=== PATIENT | male | born 1975 | race Hispanic/Latino ===

== ENCOUNTER → 2018-06-09 13:35 | Outpatient (CLI) | payer OTHER, SELFPAY ==
--- NOTE | 2018-06-09 | DI.CT.S_ITS ---
PROCEDURE: CT CHEST WO CON INDICATIONS: LEFT SIDED RIB PAIN TECHNIQUE: Noncontrast 5 mm thick sections acquired from the pulmonary apices to the posterior costophrenic angles. 7 mm thick coronal and sagittal MIP reformats were then acquired. For radiation dose reduction, the following was used: automated exposure control, adjustment of mA and/or kV according to patient size. COMPARISON: None. FINDINGS: Image quality: Excellent. Lungs and pleura: No acute air space opacities. No pleural effusions or pneumothorax. Central and peripheral airways are patent and normal in caliber. Mediastinum: Heart size is normal. No pericardial effusion. No mediastinal adenopathy by size criteria. Thoracic aorta and central pulmonary arteries are normal in size. Esophagus is normal in caliber. There is a small hiatal hernia. Bones and chest wall: No suspicious bony lesions. Moderate S-shaped scoliosis is seen. In this patient with this given history, scrutiny is given to the left ribs. No displaced rib fractures can be seen. The overlying pectoralis musculature also demonstrates no significant abnormality. No vertebral body compression fractures. No axillary or supraclavicular adenopathy by size criteria. Thyroid gland demonstrates no significant noncontrast abnormality. Abdomen: There is a 2 mm nonobstructing right renal stone seen, as on series 2 image 62. Visualized upper abdominal solid organs and bowel loops appear normal in the absence of contrast. IMPRESSION: No rib abnormality can be seen. The overlying pectoralis musculature is likewise within normal limits. Moderate S-shaped scoliosis. Incidental note is made of: Spinal hernia 2 mm nonobstructing right renal stone Dictated by: Gigi Gage M.D. on 06/09/2018 at 14:09 Approved by: Gigi Gage M.D. on 06/09/2018 at 14:12
== END ==
PROVIDERS: Visit Provider Orthopaedic Surgery
DX: R07.81 Pleurodynia (principal); N20.0 Calculus of kidney; K44.9 Diaphragmatic hernia without obstruction or gangrene
CPT/HCPCS: 71250

== ENCOUNTER → 2018-06-24 09:04 | Outpatient (CLI) | payer OTHER, SELFPAY ==
--- NOTE | 2018-06-24 | DI.NM.S_ITS ---
PROCEDURE: NM BONE SCAN WHOLE BODY RADIOPHARMACEUTICAL: 21.8 mCi Tc-99m MDP IV. INDICATIONS: Pleurodynia TECHNIQUE: Delayed whole-body scintigrams were obtained approximately 3-4 hours after intravenous injection of radiotracer. Anterior and posterior views were acquired from vertex to feet. Additional left and right oblique views of the thorax were obtained. COMPARISON: [facility], CT, CT CHEST WO CON, 06/09/2018, 13:38. FINDINGS: No areas of relative intense radiotracer uptake identified. Mild radiotracer uptake identified in the shoulders bilaterally, and the upper thoracic spine most compatible with osteoarthritis. There is severe convex left scoliosis of the upper thoracic spine. No abnormal soft tissue activity identified. Activity in the kidneys is normal and symmetric. IMPRESSION: 1. Increased radiotracer activity in the shoulders bilaterally upper thoracic spine is compatible with osteoarthritis. 2. Severe convex left upper thoracic spine scoliosis. 3. Otherwise, normal examination. Dictated by: Sheron Peres MD, PhD on 06/24/2018 at 14:37 Approved by: Sheron Peres MD, PhD on 06/24/2018 at 14:49
== END ==
PROVIDERS: Visit Provider Orthopaedic Surgery
DX: R07.81 Pleurodynia (principal); M41.84 Other forms of scoliosis, thoracic region
CPT/HCPCS: 78306; A9503

== ENCOUNTER 2022-09-12 09:26 | Emergency (ER) | payer SELFPAY ==
[2022-09-12 09:43] VITALS: BP 129/73; PULSE 70; RESP 14; TEMP 36.5; O2SAT 99; BMI 25.7
--- NOTE | 2022-09-12 10:51 | DI.CT.S_ITS ---
PROCEDURE: CT ABDOMEN PELVIS W CON INDICATIONS: abd mass to right of umbilicus TECHNIQUE: After the administration of intravenous contrast, axial sections acquired from the lung bases to the pubic symphysis. Coronal and sagittal reformats were performed. For radiation dose reduction, the following was used: automated exposure control, adjustment of mA and/or kV according to patient size. COMPARISON: None. FINDINGS: Lower thorax: The lung bases are clear. Heart size normal. No hiatal hernia. Liver: The liver is diffusely decreased in attenuation without focal mass lesion. Biliary system: No calcified cholelithiasis or pericholecystic inflammation. No intra or extrahepatic bile duct dilatation. Pancreas: Unremarkable without mass or inflammation evident. Spleen: Normal in size and density. Adrenals: Normal morphology and density. Reproductive system: Unremarkable as visualized. Urinary system: Normal renal size and attenuation. Small 1.7 cm renal cortical cyst. No renal calculi, hydronephrosis, or solid mass present. Urinary bladder unremarkable. Gastrointestinal system: The bowel is unremarkable without evidence of bowel obstruction or inflammation. The stomach appears unremarkable. Appendix: No findings to suggest acute appendicitis. Peritoneal spaces: No mesenteric or retroperitoneal adenopathy. No free air. No free fluid. Vasculature: The IVC, aorta and iliac vasculature are unremarkable. Abdominal wall: Abdominal wall intact without evidence of ventral or inguinal hernias. Musculoskeletal: Normal bone mineralization. No acute fractures. Bilateral L5 pars defects noted without spondylolisthesis IMPRESSION: 1. No CT evidence of periumbilical abdominal mass lesion 2. Incidental hepatic fatty infiltration, right renal cyst and L5 spondylolysis Approved by: Boby Smith M.D. on 09/12/2022 at 12:06
[2022-09-12 11:26] LABS: Add Manual Diff / Slide Review NO; Basophils Absolute Auto 0 /uL (0-100); Basophils Percent Auto 0.5 % (0-2); Eosinophils Absolute Auto 200 /uL (0-450); Eosinophils Percent Auto 2.4 % (2-4); Hematocrit 44.1 % (41-53); Lymphocytes Absolute Auto 2900 /uL (1100-4500); Mean Corpuscular HGB Conc 33.9 % (30-36); Mean Corpuscular Hemoglobin 29.5 PG (26-34); Mean Corpuscular Volume 86.8 fL (80-100); Monocytes Absolute Auto 600 /uL (0-900); Monocytes Percent Auto 9.4 % (3-14); Neutrophils Absolute Auto 2700 /uL (1500-7000); Neutrophils Percent Auto 42.7 % (50-75); Platelet Count 238 X10^3/uL (150-400); Red Blood Cell Count 5.08 X10^6/uL (4.5-5.9); White Blood Cell Count 6.3 X10^3/uL (4.5-11.0)
[2022-09-12 11:45] LABS: Alanine Aminotransferase 32 IU/L (<50); Albumin 4.9 g/dL (3.5-5.0); Albumin Globulin Ratio 1.4 (1.0-2.8); Alkaline Phosphatase 73 U/L (38-126); Aspartate Aminotransferase 45 IU/L (17-59); BUN Creatinine Ratio 16.9 (6-22); Bilirubin Total 0.6 mg/dL (0.2-1.3); Blood Urea Nitrogen 13 mg/dL (9-20); Calcium 9.7 mg/dL (8.4-10.2); Carbon Dioxide 28 mmol/L (22-32); Chloride 104 mmol/L (98-107); Estimated Glomerular Filt Rate > 60 mL/min (>60); Globulin 3.4 g/dL (1.7-4.1); Glucose 101 mg/dL (70-100); HEMOLYSIS 24 (0-50); Lipase 144 U/L (23-300); Potassium 4.2 mmol/L (3.4-5.1); Sodium 140 mmol/L (137-145); Total Protein 8.3 g/dL (6.3-8.2)
--- NOTE | 2022-09-12 13:33 | ED.WOUNDLAC ---
HPI - Wound/Laceration <MEGHANN Wagoner - Last Filed: 09/12/22 13:52> General Chief Complaint: Abdominal Pain Stated Complaint: abscess rt side abd/pain Time Seen by Provider: 09/12/22 13:18 Source: patient and family Mode of arrival: Ambulatory History of Present Illness HPI narrative: This is a 46 this is a 46-year-old male presents to the emergency department complaining of pain to the surface of his right lower quadrant. Denies fever, denies vomiting, denies stool changes but states that it is painful when he bends over when he does work or if he lifts anything. He states it has been painful for approximately 1 week, denies any known trauma or injury. States that he has history of neck pain with sciatica down his leg but denies any symptoms of this at this time. He denies any other changes, denies nausea vomiting, denies history of abdominal surgery, denies changes to his urination or appetite. Related Data Home Medications Medication Instructions Recorded Confirmed gabapentin 300 mg capsule 600 mg PO TID back, neck pain 09/12/22 09/12/22 Allergies Allergy/AdvReac Type Severity Reaction Status Date / Time No Known Drug Allergies Allergy Verified 09/12/22 09:46 Review of Systems <MEGHANN Wagoner - Last Filed: 09/12/22 13:52> Review of Systems ROS Unobtainable: All systems reviewed & are unremarkable except as noted in HPI and below Patient History <MEGHANN Wagoner - Last Filed: 09/12/22 13:52> Social History Smoking Status: Never smoker Smoking Status: Never smoker alcohol intake frequency: 0-2 drinks per day Substance Use Type: does not use Exam <MEGHANN Wagoner - Last Filed: 09/12/22 13:52> Narrative Exam Narrative: Reviewed vitals signs and nursing notes. General: Pleasant, sitting upright, in no acute distress, well groomed, afebrile HEENT: symmetrical facial expressions, moist mucous membranes, neck is supple CV: regular rate and rhythm, warm extremities Respiratory: normal work of breathing, without tachypnea or hypoxia. GI: abdomen soft, nondistended, no palpable hernia or abnormality, mild tenderness with palpation to the right lower quadrant but superficial, this is most likely related to a muscle strain. No CVA tenderness bilaterally, without epigastric pain, negative Hwang sign MSK: moves all extremities, no weakness, normal tone, ambulatory without deficit Skin: brisk capillary refill, without rash or wound Neuro: clear speech and normal cognition, A&O x3, GCS 15, no focal motor or sensation deficits Initial Vital Signs Initial Vital Signs: Vital Signs Temperature 97.7 F 09/12/22 09:43 Pulse Rate 70 09/12/22 09:43 Respiratory Rate 14 09/12/22 09:43 Blood Pressure 129/73 09/12/22 09:43 Pulse Oximetry 99 09/12/22 09:43 Oxygen Delivery Method Room Air 09/12/22 09:43 <Lowell Pastor MD - Last Filed: 09/27/22 22:16> Initial Vital Signs Initial Vital Signs: Vital Signs Temperature 97.7 F 09/12/22 09:43 Pulse Rate 70 09/12/22 09:43 Respiratory Rate 14 09/12/22 09:43 Blood Pressure 129/73 09/12/22 09:43 Pulse Oximetry 99 09/12/22 09:43 Oxygen Delivery Method Room Air 09/12/22 09:43 Course <MEGHANN Wagoner - Last Filed: 09/12/22 13:52> Orders Ordered: Discontinued Medications Hydrocodone Bitart/Acetaminophen (Hydrocodone/Acet 5/325 Tablet) 1 tab PO NOW ONE Stop: 09/12/22 13:30 Last Admin: 09/12/22 13:42 Dose: 1 tab Documented By: BUD Ketorolac Tromethamine (Ketorolac 30 Mg/Ml Vial) 30 mg IV NOW ONE Stop: 09/12/22 13:30 Last Admin: 09/12/22 13:42 Dose: 30 mg Documented By: BUD Lidocaine (Lidocaine Patch 1 Each Adh..Patch) 1 each TOP NOW ONE Stop: 09/12/22 13:30 Last Admin: 09/12/22 13:42 Dose: 1 each Documented By: BUD Vital Signs Vital signs: Vital Signs - 8 hr 09/12/22 09:43 Temperature 97.7 F Pulse Rate 70 Respiratory Rate 14 Blood Pressure 129/73 Pulse Oximetry 99 Oxygen Delivery Method Room Air <Lowell Pastor MD - Last Filed: 09/27/22 22:16> Orders Ordered: Discontinued Medications Hydrocodone Bitart/Acetaminophen (Hydrocodone/Acet 5/325 Tablet) 1 tab PO NOW ONE Stop: 09/12/22 13:30 Last Admin: 09/12/22 13:42 Dose: 1 tab Documented By: BUD Ketorolac Tromethamine (Ketorolac 30 Mg/Ml Vial) 30 mg IV NOW ONE Stop: 09/12/22 13:30 Last Admin: 09/12/22 13:42 Dose: 30 mg Documented By: BUD Lidocaine (Lidocaine Patch 1 Each Adh..Patch) 1 each TOP NOW ONE Stop: 09/12/22 13:30 Last Admin: 09/12/22 13:42 Dose: 1 each Documented By: BUD Vital Signs Vital signs: Vital Signs - 8 hr 09/12/22 09:43 Temperature 97.7 F Pulse Rate 70 Respiratory Rate 14 Blood Pressure 129/73 Pulse Oximetry 99 Oxygen Delivery Method Room Air MDM - Wound/Laceration <MEGHANN Wagoner - Last Filed: 09/12/22 13:52> Lab Data 09/12/22 11:00 09/12/22 11:00 Labs: Lab Results 09/12/22 09/12/22 Range/Units 11:00 11:00 WBC 6.3 (4.5-11.0) X10^3/uL RBC 5.08 (4.5-5.9) X10^6/uL Hgb 15.0 (13.5-17.5) g/dL Hct 44.1 (41-53) % MCV 86.8 (80-100) fL MCH 29.5 (26-34) PG MCHC 33.9 (30-36) % RDW 14.0 (11.6-14.8) % Plt Count 238 (150-400) X10^3/uL Neut % (Auto) 42.7 L (50-75) % Lymph % (Auto) 45.0 H (25-40) % [place] % (Auto) 9.4 (3-14) % Eos % (Auto) 2.4 (2-4) % Baso % (Auto) 0.5 (0-2) % Neut # (Auto) 2700 (4175-4898) /uL Lymph # (Auto) 2900 (3023-5900) /uL [place] # (Auto) 600 (0-900) /uL Eos # (Auto) 200 (0-450) /uL Baso # (Auto) 0 (0-100) /uL Sodium 140 (137-145) mmol/L Potassium 4.2 (3.4-5.1) mmol/L Chloride 104 (98-107) mmol/L Carbon Dioxide 28 (22-32) mmol/L BUN 13 (9-20) mg/dL Creatinine 0.77 (0.66-1.25) mg/dL Estimated GFR > 60 (>60) mL/min BUN/Creatinine Ratio 16.9 (6-22) Glucose 101 H (70-100) mg/dL Calcium 9.7 (8.4-10.2) mg/dL Total Bilirubin 0.6 (0.2-1.3) mg/dL AST 45 (17-59) IU/L ALT 32 (<50) IU/L Alkaline Phosphatase 73 (38-126) U/L Total Protein 8.3 H (6.3-8.2) g/dL Albumin 4.9 (3.5-5.0) g/dL Globulin 3.4 (1.7-4.1) g/dL Albumin/Globulin Ratio 1.4 (1.0-2.8) Lipase 144 (23-300) U/L Imaging Data CT scan - abdomen/pelvis: Radiologist's Impression: PROCEDURE:? CT ABDOMEN PELVIS W CON ? INDICATIONS:? abd mass to right of umbilicus ? TECHNIQUE:? After the administration of intravenous contrast, axial sections acquired from the lung bases to the pubic symphysis.? Coronal and sagittal reformats were performed.? For radiation dose reduction, the following was used:? automated exposure control, adjustment of mA and/or kV according to patient size.? ? COMPARISON:? None. ? FINDINGS: ? Lower thorax: The lung bases are clear.? Heart size normal.? No hiatal hernia. ? Liver: The liver is diffusely decreased in attenuation without focal mass lesion. ? Biliary system:? No calcified cholelithiasis or pericholecystic inflammation.? No intra or extrahepatic bile duct dilatation. ? Pancreas:? Unremarkable without mass or inflammation evident. ? Spleen:? Normal in size and density. ? Adrenals:? Normal morphology and density. ? Reproductive system:? Unremarkable as visualized. ? Urinary system:? Normal renal size and attenuation.? Small 1.7 cm renal cortical cyst.? No renal calculi, hydronephrosis, or solid mass present.? Urinary bladder unremarkable. ? Gastrointestinal system:? The bowel is unremarkable without evidence of bowel obstruction or inflammation. The stomach appears unremarkable. ? Appendix:? No findings to suggest acute appendicitis. ? Peritoneal spaces:? No mesenteric or retroperitoneal adenopathy.? No free air.? No free fluid.? ? Vasculature:? The IVC, aorta and iliac vasculature are unremarkable. ? Abdominal wall:? Abdominal wall intact without evidence of ventral or inguinal hernias. ? Musculoskeletal:? Normal bone mineralization.? No acute fractures.? Bilateral L5 pars defects noted without spondylolisthesis ? IMPRESSION: ? 1. No CT evidence of periumbilical abdominal mass lesion ? 2. Incidental hepatic fatty infiltration, right renal cyst and L5 spondylolysis ? Approved by: Boby Smith M.D. on 09/12/2022 at 12:06? MDM Narrative Medical decision making narrative: Chief Complaint: Abdominal pain Multiple etiologies for patient's symptoms considered including, but not limited to: Constipation, abdominal muscle strain, hernia, incarcerated hernia, abscess, nephrolithiasis, pyelonephritis, urinary tract infection I have independently reviewed the patient's vital signs and nursing notes as well as prior records if available. Pertinent lab findings reviewed: CBC is unremarkable, CMP is unremarkable, no elevation of liver enzymes, normal lipase, normal renal function My interpretation of imaging: CT abdomen pelvis without acute abnormality, no evidence superficial abnormality or deep abdominal wall, no findings to suggest appendicitis or nephrolithiasis Course of care: Patient is nontoxic appearing, without GI changes, this is most likely an abdominal muscle strain. He was given Toradol, topical lidocaine patch and hydrocodone for his symptoms today. He says the symptoms for approximately 1 week and there is no CT evidence of infection, no skin changes, without evidence of infection without recent fever or chills. Recommend patient use [id number] Tylenol and ibuprofen for his pain, stay hydrated and to return for new worsening symptoms. His last bowel movement was this morning, states that he has had normal bowel movements at least twice a day for the last week. Social considerations that may affect disposition: none Questions are addressed and there is agreement with the plan and for follow-up. Patient is appropriate for outpatient management. <Lowell Pastor MD - Last Filed: 09/27/22 22:16> Lab Data Labs: Lab Results 09/12/22 09/12/22 Range/Units 11:00 11:00 WBC 6.3 (4.5-11.0) X10^3/uL RBC 5.08 (4.5-5.9) X10^6/uL Hgb 15.0 (13.5-17.5) g/dL Hct 44.1 (41-53) % MCV 86.8 (80-100) fL MCH 29.5 (26-34) PG MCHC 33.9 (30-36) % RDW 14.0 (11.6-14.8) % Plt Count 238 (150-400) X10^3/uL Neut % (Auto) 42.7 L (50-75) % Lymph % (Auto) 45.0 H (25-40) % [place] % (Auto) 9.4 (3-14) % Eos % (Auto) 2.4 (2-4) % Baso % (Auto) 0.5 (0-2) % Neut # (Auto) 2700 (8421-8880) /uL Lymph # (Auto) 2900 (9991-1973) /uL [place] # (Auto) 600 (0-900) /uL Eos # (Auto) 200 (0-450) /uL Baso # (Auto) 0 (0-100) /uL Sodium 140 (137-145) mmol/L Potassium 4.2 (3.4-5.1) mmol/L Chloride 104 (98-107) mmol/L Carbon Dioxide 28 (22-32) mmol/L BUN 13 (9-20) mg/dL Creatinine 0.77 (0.66-1.25) mg/dL Estimated GFR > 60 (>60) mL/min BUN/Creatinine Ratio 16.9 (6-22) Glucose 101 H (70-100) mg/dL Calcium 9.7 (8.4-10.2) mg/dL Total Bilirubin 0.6 (0.2-1.3) mg/dL AST 45 (17-59) IU/L ALT 32 (<50) IU/L Alkaline Phosphatase 73 (38-126) U/L Total Protein 8.3 H (6.3-8.2) g/dL Albumin 4.9 (3.5-5.0) g/dL Globulin 3.4 (1.7-4.1) g/dL Albumin/Globulin Ratio 1.4 (1.0-2.8) Lipase 144 (23-300) U/L Discharge Plan Departure Patient Disposition: Home Clinical Impression: Abdominal muscle strain Instructions: Abdominal Muscle Strain, DI for Abdominal Muscle Strain Activity Restrictions/Additional Instructions: *You have been diagnosed with a strain of your abdominal muscle. This can cause pain for 2 or more weeks. You can take Tylenol 975 mg with ibuprofen 800 mg every 8 hours with food and water. Please use a lidocaine patch or something topical if you need it for pain control. This will start to get better, no evidence of infection or anything dangerous today. Thank you for being patient and coming in for evaluation. I hope you feel better soon. If you get a fever or started vomiting, please come back for another evaluation. Drink plenty of water and try to avoid being constipated. *What to do: *Please continue to take your regular medications as directed. [ ] New medication prescriptions sent to your pharmacy: [ ] [ ] New medication written as a paper prescription [ x] No new medications given *Please call and schedule follow up with your primary care provider in 2-3 days, at least for an update. Let them know you were seen in the Emergency Department for the above problem. We will electronically transmit a record of today's note if your PCP or specialist is in our system. *If you do not have a primary care provider please contact [phone] to establish care with one of the [facility] primary care providers. *Return to the Emergency Department for worsening symptoms, inability to keep liquids down, fever greater than 101F, chills, or other concerning symptom. Prescriptions: No Action gabapentin 300 mg capsule 600 mg PO TID Stand Alone Forms: Patient Portal/API <Lowell Pastor MD - Last Filed: 09/27/22 22:16> Cosign ED Attending Cosignature Attestation: I was immediately available in the department for consultation. This documentation has been reviewed and I agree with assessment and plan. Supervised by Lowell Pastor MD
[2022-09-12] MEDS: HYDROCODONE/ACET 5/325 TABLET 1 TAB PO (13:42)
[2022-09-12] MEDS: LIDOCAINE PATCH 1 EACH ADH..PATCH TOP (13:42)
[2022-09-12] MEDS: KETOROLAC 30 MG/ML VIAL IV (13:42)
[2022-09-12 13:55] VITALS: BP 122/84; PULSE 68; RESP 16; O2SAT 100
== END 2022-09-12 13:57 | disposition home or self-care (01) ==
PROVIDERS: Emergency Medicine; Emergency Provider Nurse Practitioner Critical Care Medicine
DX: S39.011A Strain of muscle, fascia and tendon of abdomen, initial encounter (principal)
CPT/HCPCS: 36415; 74177; 80053; 81003; 83690; 85025; 96374; 99284; J1885; Q9967